=== PATIENT | male | born 1990 | race Caucasian/White ===

== ENCOUNTER 2023-12-24 17:42 | Emergency (ER) | payer OTHER ==
--- NOTE | 2023-12-24 18:48 | ED ---
Abdominal Pain HPI - General Source: patient, RN notes reviewed Mode of arrival: ambulatory Limitations: no limitations <Macy Chadwick - Last Filed: 12/24/23 18:47> <Lorri Ramon - Last Filed: 12/25/23 11:33> - General Chief Complaint: Abdominal Pain Stated Complaint: Abd Pain Time Seen by Provider: 12/24/23 18:47 - History of Present Illness Initial Comments: This is a 33-year-old male who presents to the emergency department for abdominal pain, nausea, and vomiting. Symptoms started 3 days ago. He initial ly went to urgent care, but was advised to come to the emergency department for evaluation of his gallbladder. (Macy Chadwick) 33-year-old male with no significant past medical history presents to the emergency department for evaluation of right-sided abdominal pain, nausea, vomiting. He states that this started 3 days ago. He also reports that it is worse with meals and movement. Denies any prior abdominal surgeries. Denies fever, chills. He denies to normal bowel movements. Last bowel movement today, patient is passing gas normally. (Lorri Ramon) - Related Data Allergies Allergy/AdvReac Type Severity Reaction Status Date / Time No Known Allergies Allergy Verified 12/24/23 18:34 Review of Systems ROS Other: All systems not noted in ROS Statement are negative. <Macy Chadwick - Last Filed: 12/24/23 18:47> ROS Other: All systems not noted in ROS Statement are negative. <Lorri Ramon - Last Filed: 12/25/23 11:33> ROS Statement: Those systems with pertinent positive or pertinent negative responses have been documented in the HPI. Past Medical History Past Medical History: No Reported History History of Any Multi-Drug Resistant Organisms: None Reported Past Surgical History: Orthopedic Surgery, Tonsillectomy Past Psychological History: No Psychological Hx Reported Smoking Status: Current every day smoker Past Alcohol Use History: Rare Past Drug Use History: Marijuana <Macy Chadwick - Last Filed: 12/24/23 18:47> General Exam Limitations: no limitations <Macy Chadwick - Last Filed: 12/24/23 18:47> Limitations: no limitations General appearance: alert, in no apparent distress Head exam: Present: atraumatic, normocephalic, normal inspection Eye exam: Present: normal appearance, PERRL, EOMI. Absent: scleral icterus, conjunctival injection, periorbital swelling ENT exam: Present: normal exam, mucous membranes moist Neck exam: Present: normal inspection. Absent: tenderness, meningismus, lymphadenopathy Respiratory exam: Present: normal lung sounds bilaterally. Absent: respiratory distress, wheezes, rales, rhonchi, stridor Cardiovascular Exam: Present: regular rate, normal rhythm, normal heart sounds. Absent: systolic murmur, diastolic murmur, rubs, gallop, clicks GI/Abdominal exam: Present: soft, tenderness (RUQ), normal bowel sounds. Absent: distended, guarding, rebound, rigid Extremities exam: Present: normal inspection, full ROM, normal capillary refill. Absent: tenderness, pedal edema, joint swelling, calf tenderness Back exam: Present: normal inspection Neurological exam: Present: alert, oriented X3 Psychiatric exam: Present: normal affect, normal mood Skin exam: Present: warm, dry, intact, normal color. Absent: rash <Lorri Ramon - Last Filed: 12/25/23 11:33> - General Exam Comments Initial Comments: Visual Physical Exam Vital signs reviewed General: Well-appearing, nontoxic, no acute distress. Head: Normocephalic, atraumatic Eyes: PERRLA, EOMI ENT: Airway patent Chest: Nonlabored breathing Skin: No visual rash, normal skin tone Neuro: Alert and oriented 3 Musculoskeletal: No gross abnormalities (Macy Chadwick) Course Vital Signs 12/24/23 12/24/23 12/24/23 18:30 21:34 23:09 Temperature 98.9 F Pulse Rate 65 55 L 57 L Respiratory 18 18 16 Rate Blood Pressure 150/80 96/49 112/64 O2 Sat by Pulse 98 97 96 Oximetry Medical Decision Making <Macy Chadwick - Last Filed: 12/24/23 18:47> - Lab Data Result diagrams: 12/24/23 19:34 12/24/23 19:34 <Lorri Ramon - Last Filed: 12/25/23 11:33> - Medical Decision Making I performed the QuickNote portion of this chart. Signed Macy Chadwick PA-C. (Macy Chadwick) Was pt. sent in by a medical professional or institution ([facility], [facility], urgent care, hospital, or long-term...) When possible be specific @ -No Did you speak to anyone other than the patient for history (EMS, parent, family, police, friend...)? What history was obtained from this source @ -No Did you review nursing and triage notes (agree or disagree)? Why? @ -I reviewed and agree with nursing and triage notes Were old charts reviewed (outside hosp., previous admission, EMS record, old EKG, old radiological studies, urgent care reports/EKG's, long-term records)? Report findings @ -No old charts were reviewed Differential Diagnosis (chest pain, altered mental status, abdominal pain women, abdominal pain men, vaginal bleeding, weakness, fever, dyspnea, syncope, headache, dizziness, GI bleed, back pain, seizure, CVA, palpatations, mental health, musculoskeletal)? @ -Differential Abdominal Pain Men: Appendicitis, cholecystitis, diverticulosis, ischemic bowel, pancreatitis, hepatitis, UTI, gastroenteritis, AAA, incarcerated hernia, bowel obstruction, constipation, inflammatory bowel, hepatitis, peptic ulcer disease, splenic infarction, perforated viscus, testicular torsion, this is not meant to be an all-inclusive list EKG interpreted by me (3pts min.). @ -None X-rays interpreted by me (1pt min.). @ -None done CT interpreted by me (1pt min.). @ -CT abdomen pelvis shows no acute intra-abdominal process U/S interpreted by me (1pt. min.). @ -Gallbladder ultrasound shows no cholelithiasis, normal gallbladder wall thickness What testing was considered but not performed or refused? (CT, X-rays, U/S, labs)? Why? @ -None What meds were considered but not given or refused? Why? @ -None Did you discuss the management of the patient with other professionals (professionals i.e. [facility], [facility]ER, lab, RT, psych nurse, health care social worker, gear hobber operator, teacher, uniform patrol police officer, nurse outreach case manager)? Give summary @ -No Was smoking cessation discussed for >3mins.? @ -No Was critical care preformed (if so, how long)? @ -No Were there social determinants of health that impacted care today? How? (Homelessness, low income, unemployed, alcoholism, drug addiction, transportation, low edu. Level, literacy, decrease access to med. care, fci, rehab)? @ -No Was there de-escalation of care discussed even if they declined (Discuss DNR or withdrawal of care, Hospice)? DNR status @ -No What co-morbidities impacted this encounter? (DM, HTN, Smoking, COPD, CAD, Cancer, CVA, ARF, Chemo, Hep., AIDS, mental health diagnosis, sleep apnea, morbid obesity)? @ -None Was patient admitted / discharged? Hospital course, mention meds given and route, prescriptions, significant lab abnormalities, going to OR and other pertinent info. @ -Discharge. Patient presented to the emergency department for evaluation of right-sided abdominal pain x 3 days. Laboratory studies obtained. CBC shows WBC 17.7 which is likely reactive to the patient's vomiting.Hemoglobin 17.0, hematocrit 50; normal electrolytes, creatinine 0.84, lipase 77; UA shows trace protein, 2+ ketones. Gallbladder ultrasound within normal limits. CT abdomen pelvis obtained which shows no acute intra-abdominal process. Patient was provided 1 L normal saline, dose of Zofran, Toradol, Protonix he does report some relief with this. Patient given another dose of Toradol, Reglan. Discussed findings with patient and symptomatic control at home. Discussed follow-up with PCP. Patient understanding agreeable plan. Patient stable at time of discharge. Undiagnosed new problem with uncertain prognosis? @ -No Drug Therapy requiring intensive monitoring for toxicity (Heparin, Nitro, Insulin, Cardizem)? @ -No Were any procedures done? @ -No Diagnosis/symptom? @ -Abdominal pain Acute, or Chronic, or Acute on Chronic? @ -Acute Uncomplicated (without systemic symptoms) or Complicated (systemic symptoms)? @ -Uncomplicated Side effects of treatment? @ -No Exacerbation, Progression, or Severe Exacerbation? @ -No Poses a threat to life or bodily function? How? (Chest pain, [place], [place], pneumonia, PE, COPD, DKA, ARF, appy, cholecystitis, CVA, Diverticulitis, Homicidal, Suicidal, threat to staff... and all critical care pts) @ -No (Lorri Ramon) - Lab Data Lab Results 12/24/23 12/24/23 12/24/23 Range/Units 18:45 19:34 19:34 WBC 17.7 H (3.8-10.6) k/uL RBC 5.56 (4.30-5.90) m/uL Hgb 17.0 (13.0-17.5) gm/dL Hct 50.0 (39.0-53.0) % MCV 89.9 (80.0-100.0) fL MCH 30.5 (25.0-35.0) pg MCHC 34.0 (31.0-37.0) g/dL RDW 12.0 (11.5-15.5) % Plt Count 269 (150-450) k/uL MPV 7.9 Neutrophils % 64 % Lymphocytes % 28 % Monocytes % 5 % Eosinophils % 2 % Basophils % 1 % Neutrophils # 11.4 H (1.3-7.7) k/uL Lymphocytes # 4.9 H (1.0-4.8) k/uL Monocytes # 0.8 (0-1.0) k/uL Eosinophils # 0.3 (0-0.7) k/uL Basophils # 0.1 (0-0.2) k/uL Sodium 140 (137-145) mmol/L Potassium 4.3 (3.5-5.1) mmol/L Chloride 106 (98-107) mmol/L Carbon Dioxide 28 (22-30) mmol/L Anion Gap 6 mmol/L BUN 12 (9-20) mg/dL Creatinine 0.84 (0.66-1.25) mg/dL Est GFR (CKD-EPI)AfAm >90 (>60 ml/min/1.73 sqM) Est GFR (CKD-EPI)NonAf >90 (>60 ml/min/1.73 sqM) Glucose 88 (74-99) mg/dL Calcium 9.6 (8.4-10.2) mg/dL Total Bilirubin 0.8 (0.2-1.3) mg/dL AST 27 (17-59) U/L ALT 21 (4-49) U/L Alkaline Phosphatase 66 (38-126) U/L Total Protein 7.5 (6.3-8.2) g/dL Albumin 4.8 (3.5-5.0) g/dL Amylase 58 (30-110) U/L Lipase 77 (23-300) U/L Urine Color Yellow Urine Appearance Clear (Clear) Urine pH 6.0 (5.0-8.0) Ur Specific May 1.030 (1.001-1.035) Urine Protein Trace H (Negative) Urine Glucose (UA) Negative (Negative) Urine Ketones 2+ H (Negative) Urine Blood Negative (Negative) Urine Nitrite Negative (Negative) Urine Bilirubin Negative (Negative) Urine Urobilinogen 2.0 (<2.0) mg/dL Ur Leukocyte Esterase Negative (Negative) Disposition <Macy Chadwick - Last Filed: 12/24/23 18:47> Is patient prescribed a controlled substance at d/c from ED?: No <Lorri Ramon - Last Filed: 12/25/23 11:33> Clinical Impression: Abdominal pain Disposition: HOME SELF-CARE Condition: Stable Instructions (If sedation given, give patient instructions): Abdominal Pain (ED) Additional Instructions: Please follow up with your primary care provider. Return to the emergency department for new or worsening symptoms. Referrals: Surjit Garcia MD [REFERRING] - 1-2 days Giacomo Marks MD [Medical Doctor] - 1-2 days
[2023-12-24 18:54] VITALS: TEMP 98.9
[2023-12-24 19:00] LABS: Appearance,Urine Clear (Clear); Bilirubin,Urine Negative (Negative); Blood,Urine Negative (Negative); Color,Urine Yellow; Glucose,Urine (UA) Negative (Negative); Ketones,Urine 2+ (Negative); Leukocyte Esterase,Urine Negative (Negative); Nitrite,Urine Negative (Negative); Protein,Urine Trace (Negative)
--- NOTE | 2023-12-24 19:36 | US ---
EXAMINATION TYPE: US gallbladder DATE OF EXAM: 12/24/2023 COMPARISON: NONE CLINICAL INDICATION: Male, 33 years old with history of RUQ pain; Right sided pain x 3 days TECHNIQUE: Multiple sonographic images of the right upper quadrant are obtained. FINDINGS: EXAM MEASUREMENTS: Liver Length: 14.3 cm Gallbladder Wall: 0.23 cm CBD: 0.32 cm Right Kidney: 9.8 x 4.9 x 4.1 cm Pancreas: Negative as seen. Liver: No abnormalities. Gallbladder: No cholelithiasis. No gallbladder distention. Gallbladder wall normal. Evidence for sonographic Alonso's sign: No CBD: Within normal limits, measuring 3 mm caliber. Right Kidney: No acute findings. IMPRESSION: No acute sonographic process.
[2023-12-24 19:50] LABS: Basophils # (A) 0.1 k/uL (0-0.2); Basophils % (A) 1 %; Eosinophils # (A) 0.3 k/uL (0-0.7); Eosinophils % (A) 2 %; Lymphocytes # (A) 4.9 k/uL (1.0-4.8); Lymphocytes % (A) 28 %; MCH 30.5 pg (25.0-35.0); MCV 89.9 fL (80.0-100.0); Mean Platelet Volume 7.9; Monocytes # (A) 0.8 k/uL (0-1.0); Monocytes % (A) 5 %; Neutrophils # (A) 11.4 k/uL (1.3-7.7); Neutrophils % (A) 64 %; Platelet Count 269 k/uL (150-450); RBC 5.56 m/uL (4.30-5.90); WBC 17.7 k/uL (3.8-10.6)
[2023-12-24 20:19] LABS: ALT 21 U/L (4-49); AST 27 U/L (17-59); African American GFR (CKD) >90 (>60 ml/min/1.73 sqM); Albumin 4.8 g/dL (3.5-5.0); Alkaline Phosphatase 66 U/L (38-126); Amylase 58 U/L (30-110); Anion Gap 6 mmol/L; Blood Urea Nitrogen 12 mg/dL (9-20); Calcium 9.6 mg/dL (8.4-10.2); Carbon Dioxide 28 mmol/L (22-30); Chloride 106 mmol/L (98-107); Glucose 88 mg/dL (74-99); Lipase 77 U/L (23-300); Non-African American GFR(CKD) >90 (>60 ml/min/1.73 sqM); Potassium 4.3 mmol/L (3.5-5.1); Sodium 140 mmol/L (137-145); Total Bilirubin 0.8 mg/dL (0.2-1.3); Total Protein 7.5 g/dL (6.3-8.2)
[2023-12-24] MEDS: KETOROLAC 15 MG/ML 1 ML VIAL IVP STA ×2 (20:53→22:57)
[2023-12-24] MEDS: PANTOPRAZOLE 40 MG/10 ML VIAL IVP STA (20:53)
[2023-12-24] MEDS: ONDANSETRON 4 MG/2 ML VIAL IVP STA (20:53)
[2023-12-24] MEDS: SODIUM CHLORIDE 0.9% 1,000 ML IV ONE (20:54)
--- NOTE | 2023-12-24 21:13 | CT ---
EXAMINATION TYPE: CT abdomen pelvis w con DATE OF EXAM: 12/24/2023 HISTORY: Rt side abdomen pain, N/V x3days. TECHNIQUE: Departmental protocol. Total DLP: 725.7 mGycm, Automated Exposure Control for Dose Reduction was Utilized. IV contrast: 100 mL Isovue 300. COMPARISON: None FINDINGS: LUNG BASES: No acute findings. LIVER/GB: No significant abnormality is appreciated. PANCREAS: No significant abnormality is seen. SPLEEN: No significant abnormality is seen. ADRENALS: No significant abnormality is seen. KIDNEYS: No acute findings. BOWEL: No bowel dilation or inflammation. The appendix has normal appearance. Colonic stool volume i s normal. PERITONEAL CAVITY: No pneumoperitoneum or fluid. LYMPH NODES: No greater than 1cm abdominal or pelvic lymph nodes are appreciated. OSSEOUS STRUCTURES: No significant abnormality is seen. VASCULATURE: Unremarkable. IMPRESSION: No significant acute finding to account for patient's clinical symptoms.
[2023-12-24] MEDS: ONDANSETRON 4 MG ODT STARTER PACK 2 TAB BTL PO STA (22:57)
[2023-12-24] MEDS: METOCLOPRAMIDE 5 MG/ML 2 ML VIAL IVP STA (23:00)
[2023-12-24 23:26] VITALS: BP 112/64; PULSE 57; RESP 16
== END 2023-12-24 23:10 | disposition home or self-care (01) ==
LOC: EC 17:42
DX: R10.11 Right upper quadrant pain (principal); R11.2 Nausea with vomiting, unspecified; F17.200 Nicotine dependence, unspecified, uncomplicated; F12.90 Cannabis use, unspecified, uncomplicated
CPT/HCPCS: 99284 ×2; 96374 ×2; 96375 ×4; 96376 ×2; 96361 ×2; 36415; 80053; 82150; 83690; 85025; 81003; 76705; 74177; J2765; J2405; J1885; S0119; C9113; Q9967